=== PATIENT | male | born 1955 | race Caucasian/White ===

== ENCOUNTER 2016-11-06 20:41 | Inpatient (IN) | payer BC ==
[2016-11-06 21:23] VITALS: BMI 27.3
--- NOTE | 2016-11-06 22:18 | HP ---
CIWA Score - CIWA Score Nausea/Vomitin Muscle Tremors: 4-Moderate,w/Arms Extend Anxiety: 4-Mod. Anxious/Guarded Agitation: 4-Moderately Restless Paroxysmal Sweats: 4-Forehead w/Sweat Beads Orientation: 0-Oriented Tacttile Disturbances: 0-None Auditory Disturbances: 0-None Visual Disturbances: 0-None Headache: 2-Mild CIWA-Ar Total Score: 21 Admission ROS BHS - HPI Chief Complaint: C/O ALCOHOL ABUSE/DEPENDENCE SEEKING DETOX TXMENT. Allergies/Adverse Reactions: Allergies Allergy/AdvReac Type Severity Reaction Status Date / Time No Known Allergies Allergy Verified 11/06/16 21:29 History of Present Illness: 61 Y.O MALE WITH ALCOHOLISM ADMITTED FOR DETOX TXMENT. WAS SEEN AT [facility] TODAY FOR WITHDRAWAL SX'S SEEN AND DC. REFERRED HERE. DENIES ANY SIGNIFICANT CLEAN TIME. Exam Limitations: No Limitations - Ebola screening Have you traveled outside of the country in the last 21 days: No Have you had contact with anyone from an Ebola affected area: No Have you been sick,other than usual withdrawal symptoms: No Do you have a fever: No - Review of Systems Constitutional: Chills, Night Sweats, Changes in sleep EENT: reports: No Symptoms Reported Respiratory: reports: Cough Cardiac: reports: No Symptoms Reported GI: reports: Abdominal cramping : reports: No Symptoms Reported Musculoskeletal: reports: No Symptoms Reported Integumentary: reports: No Symptoms Reported Neuro: reports: No Symptoms reported Endocrine: reports: No Symptoms Reported Hematology: reports: No Symptoms Reported Psychiatric: reports: Anxious Other Systems: Reviewed and Negative Patient History - Patient Medical History Hx Anemia: No Hx Asthma: No Hx Chronic Obstructive Pulmonary Disease (COPD): No Hx Cancer: No Hx Cardiac Disorders: No Hx Congestive Heart Failure: No Hx Hypertension: No Hx Hypercholesterolemia: No Hx Pacemaker: No HX Cerebrovascular Accident: No Hx Seizures: No Hx Diabetes: No Hx Gastrointestinal Disorders: No Hx Liver Disease: No Hx Genitourinary Disorders: No Hx Sexually Transmitted Disorders: No Hx Renal Disease (ESRD): No Hx Thyroid Disease: No Hx Human Immunodeficiency Virus (HIV): No Hx Hepatitis C: No Hx Depression: No Hx Suicide Attempt: No Hx Bipolar Disorder: No Hx Schizophrenia: No Other Medical History: DENIES - Patient Surgical History Past Surgical History: Yes Hx Neurologic Surgery: No Hx Cataract Extraction: No Hx Cardiac Surgery: No Hx Lung Surgery: No Hx Breast Surgery: No Hx Breast Biopsy: No Hx Abdominal Surgery: No Hx Appendectomy: No Hx Cholecystectomy: No Hx Genitourinary Surgery: No Hx Section: No Hx Orthopedic Surgery: Yes Other Surgical History: FX RT KNEE Anesthesia Reaction: No - PPD History Previous Implant?: Yes Documented Results: Negative w/o proof Implanted On Prior R Admission?: No PPD to be Administered?: Yes - Smoking Cessation Smoking history: Current every day smoker Have you smoked in the past 12 months: Yes Aproximately how many cigarettes per day: 10 Hx Chewing Tobacco Use: No Initiated information on smoking cessation: Yes 'Breaking Loose' booklet given: 11/06/16 - Substance & Tx. History Hx Alcohol Use: Yes Substance Use Type: Cocaine Hx Substance Use Treatment: Yes (DOES NOT RECALL) - Substances Abused Alcohol Route: Oral Frequency: Daily Amount used: LIQUOR- 2 PINTS, BEER- 1 CASE Age of first use: 16 Date of Last Use: 11/06/16 Crack Route: Smoking Frequency: Daily Amount used: 10 BAGS Age of first use: 19 Date of Last Use: 11/06/16 Family Disease History - Family Disease History Family History: Denies Admission Physical Exam BHS - Vital Signs Vital Signs: Vital Signs - 24 hr 11/06/16 21:20 Temperature 97.9 F Pulse Rate 80 Respiratory 20 Rate Blood Pressure 138/81 - Physical General Appearance: Yes: Disheveled, Moderate Distress, Intoxicated, Anxious HEENTM: Yes: EOMI, Normocephalic, Normal Voice, EDUARD, Pharynx Normal, Other ( MISSING TEETH) Respiratory: Yes: Chest Non-Tender, Lungs Clear, Normal Breath Sounds, No Respiratory Distress, No Accessory Muscle Use Neck: Yes: No masses,lesions,Nodules, Supple, Trachea in good position Breast: Yes: Breast Exam Deferred Cardiology: Yes: Regular Rhythm, Regular Rate, S1, S2 Abdominal: Yes: Normal Bowel Sounds, Non Tender, Soft Genitourinary: Yes: Within Normal Limits Back: Yes: Normal Inspection Musculoskeletal: Yes: full range of Motion, Gait Steady Extremities: Yes: Normal Capillary Refill, Normal Range of Motion, Non-Tender, Tremors Neurological: Yes: Fully Oriented, Motor Strength 5/5 Integumentary: Yes: Other (UNKEPT, SOILED WITH DRY FECES, OFFENSIVE ODUR) Lymphatic: Yes: Within Normal Limits - Diagnostic (1) Alcohol dependence with uncomplicated withdrawal Current Visit: Yes Status: Chronic (2) Cocaine dependence, uncomplicated Current Visit: Yes Status: Chronic (3) Nicotine dependence Current Visit: Yes Status: Chronic Qualifiers: Nicotine product type: cigarettes Substance use status: uncomplicated Qualified Code(s): F17.210 - Nicotine dependence, cigarettes, uncomplicated Cleared for Admission [facility] - Detox or Rehab [facility] Level of Care: Medically Managed Detox Regimen/Protocol: Librium [facility] Breath Alcohol Content Breath Alcohol Content: 0.079 Urine Drug Screen - Results Drug Screen Negative: No Urine Drug Screen Results: JEANNE-Cocaine
[2016-11-06] MEDS ORDERED: hydrOXYzine PAMOATE 50 MG CAPSULE (FP) PO PRN (22:31)
[2016-11-06] MEDS ORDERED: P-EPHED 60MG/TRIPROLIDI 2.5MG TABLET PO PRN (22:31)
[2016-11-06] MEDS ORDERED: MENTHOL/PHENOL 1 EACH UD MM PRN (22:31)
[2016-11-06] MEDS ORDERED: LOPERAMIDE HCL 2 MG CAPSULE PO PRN (22:31)
[2016-11-06] MEDS ORDERED: guaiFENesin/D-METHORPHAN HB 10 ML UNIT-DOSE CUPS PO PRN (22:31)
[2016-11-06] MEDS ORDERED: ACETAMINOPHEN 325 MG TABLET (FP) PO PRN (22:31)
[2016-11-06] MEDS ORDERED: IBUPROFEN 400 MG TABLET (FP) PO PRN (22:31)
[2016-11-06] MEDS ORDERED: MAGNESIUM CITRATE 300 ML BOTTLE PO PRN (22:31)
[2016-11-06] MEDS ORDERED: NICOTINE POLACRILEX 2 MG GUM BC PRN (22:31)
[2016-11-06] MEDS ORDERED: MAG HYDROX/AL HYDROX/SIMETH 30 ML UNIT-DOSE CUP PO PRN (22:31)
[2016-11-06] MEDS ORDERED: chlordiazePOXIDE HCL 25 MG CAPSULE PO PRN (22:31)
[2016-11-06] MEDS ORDERED: MAGNESIUM HYDROX 2400MG/30ML ORAL SUSPENSION 30 ML CUP PO PRN (22:31)
[2016-11-06] MEDS: chlordiazePOXIDE HCL 25 MG CAPSULE PO SCH (22:58)
[2016-11-07] MEDS: chlordiazePOXIDE HCL 25 MG CAPSULE PO SCH ×4 (05:55→22:19)
[2016-11-07 09:19] LABS: MCH 32.6 pg (25.7-33.7); MCHC 33.6 g/dl (32.0-35.9); MEAN CELL VOLUME 96.9 fl (80-96); MEAN PLT VOLUME 9.4 fl (7.5-11.1); PLATELET COUNT 187 K/MM3 (134-434); RDW 12.9 % (11.9-15.9); WHITE BLOOD COUNT 3.4 K/mm3 (4.0-10.0)
[2016-11-07 09:21] LABS: ALBUMIN 3.3 g/dl (3.4-5.0); ANION GAP 8 (8-16); CO2 33 mmol/L (21-32); GLUCOSE,RANDOM 114 mg/dL (74-106)
[2016-11-07 09:25] LABS: ALK PHOS 105 U/L (45-117); BILIRUBIN,TOTAL 0.9 mg/dL (0.2-1.0); CREATININE 0.8 mg/dL (0.7-1.3); SGOT/AST 79 U/L (15-37); SGPT/ALT 67 U/L (12-78); TOT PROT 7.5 g/dl (6.4-8.2)
--- NOTE | 2016-11-07 09:34 | CONSULT ---
[facility] Psychiatric Consult - Data Date of interview: 11/07/16 Admission source: [facility] Identifying data: First admission to [facility] for this 61 y/o male seeking detox treatment on for alcohol and cocaine (crack) dependence.Patient is single without children,homeless,unemployed and supporetd on SSI benefits. Substance Abuse History: - Smoking Cessation. Smoking history: Current every day smoker. Have you smoked in the past 12 months: Yes. Aproximately how many cigarettes per day: 10. Hx Chewing Tobacco Use: No. Initiated information on smoking cessation: Yes. 'Breaking Loose' booklet given: 11/06/16. - Substance & Tx. History. Hx Alcohol Use: Yes. Substance Use Type: Cocaine. Hx Substance Use Treatment: Yes (DOES NOT RECALL). - Substances Abused. Alcohol. Route: Oral. Frequency: Daily. Amount used: LIQUOR- 2 PINTS, BEER- 1 CASE. Age of first use: 16. Date of Last Use: 11/06/16. Crack. Route: Smoking. Frequency: Daily. Amount used: 10 BAGS. Age of first use: 19. Date of Last Use: 11/06/16. Discussed in this session.Patient confirms this pattern of substance use. Medical History: Patient reports good general health. Psychiatric History: Patient denies. Physical/Sexual Abuse/Trauma History: No reported history of sexual abuse. Additional Comment: Urine Drug Screen Results: JEANNE-Cocaine.Noted. Mental Status Exam - Mental Status Exam Alert and Oriented to: Time, Place, Person Cognitive Function: Good Patient Appearance: Disheveled Mood: Nervous, Withdrawn Affect: Mood Congruent Patient Behavior: Fatigued, Appropriate, Cooperative Speech Pattern: Clear Voice Loudness: Normal Thought Process: Goal Oriented Thought Disorder: Not Present Hallucinations: Denies Suicidal Ideation: Denies Homicidal Ideation: Denies Insight/Judgement: Poor Sleep: Fair Appetite: Good Muscle strength/Tone: Normal Gait/Station: Normal Psychiatric Findings - Problem List ([place] 1, 2,3) (1) Alcohol dependence with uncomplicated withdrawal Current Visit: Yes Status: Chronic (2) Cocaine dependence, uncomplicated Current Visit: Yes Status: Chronic (3) Nicotine dependence Current Visit: Yes Status: Chronic Qualifiers: Nicotine product type: cigarettes Substance use status: uncomplicated Qualified Code(s): F17.210 - Nicotine dependence, cigarettes, uncomplicated - Initial Treatment Plan Initial Treatment Plan: Psychoeducation :emphasis on the benefits of sobriety and the dangers (medical,social,legal and psychological) of substance abuse.Detoxification in progress.Observation.
[2016-11-07] MEDS: NICOTINE 21 MG/24 HOURS TOPICAL PATCH TD SCH (10:08)
[2016-11-07] MEDS: PRENATAL VITAMINS W/ FOLIC ACID TABLET (FP) PO SCH (10:09)
--- NOTE | 2016-11-07 10:27 | PN ---
S CIWA - CIWA Score Nausea/Vomitin-No Nausea/No Vomiting Muscle Tremors: 3 Anxiety: 4-Mod. Anxious/Guarded Agitation: 4-Moderately Restless Paroxysmal Sweats: 3 Orientation: 0-Oriented Tacttile Disturbances: 0-None Auditory Disturbances: 0-None Visual Disturbances: 0-None Headache: 0-None Present CIWA-Ar Total Score: 14 BHS Progress Note (SOAP) Subjective: sweating,interrupted sleep,anxiety,tremors,restless. Objective: 11/07/16 10:25 Vital Signs - 8 hr 11/07/16 11/07/16 11/07/16 03:38 06:20 10:05 Temperature 97 F L 98.4 F Pulse Rate 74 91 H Respiratory 18 18 18 Rate Blood Pressure 175/88 153/87 Laboratory Tests 11/07/16 11/07/16 07:45 07:45 WBC 3.4 L RBC 4.10 Hgb 13.3 Hct 39.7 MCV 96.9 H MCHC 33.6 RDW 12.9 Plt Count 187 MPV 9.4 Sodium 140 Potassium 3.9 Chloride 99 Carbon Dioxide 33 H Anion Gap 8 BUN 11 Creatinine 0.8 Creat Clearance w eGFR > 60 Random Glucose 114 H Calcium 9.0 Total Bilirubin 0.9 AST 79 H ALT 67 Alkaline Phosphatase 105 Total Protein 7.5 Albumin 3.3 L labs noted Assessment: 11/07/16 10:26 withdrawal sx. Plan: continue detox
--- NOTE | 2016-11-07 10:45 | EKG ---
Test Reason : Blood Pressure : / mmHG Vent. Rate : 068 BPM Atrial Rate : 068 BPM P-R Int : 190 ms QRS Dur : 096 ms QT Int : 464 ms P-R-T Axes : 068 011 034 degrees QTc Int : 493 ms NORMAL SINUS RHYTHM MINIMAL VOLTAGE CRITERIA FOR LVH, MAY BE NORMAL VARIANT PROLONGED QT ABNORMAL ECG NO PREVIOUS ECGS AVAILABLE Confirmed by MAGO MONTES MD ([id number]) on 11/07/2016 10:45:31 AM Referred By: Confirmed By:MAGO MONTES MD
[2016-11-07] MEDS ORDERED: LISINOPRIL 10 MG TABLET (FP) PO ONE (14:37)
[2016-11-07] MEDS: amLODIPine BESYLATE 10 MG TABLET (FP) PO SCH (14:51)
[2016-11-07 20:48] LABS: URINE APPEARANCE CLOUDY; URINE BILIRUBIN NEGATIVE (NEGATIVE); URINE BLOOD NEGATIVE (NEGATIVE); URINE COLOR YELLOW; URINE GLUCOSE (UA) NEGATIVE (NEGATIVE); URINE KETONE NEGATIVE (NEGATIVE); URINE LEUK ESTERASE NEGATIVE (NEGATIVE); URINE NITRITE NEGATIVE (NEGATIVE); URINE PROTEIN NEGATIVE (NEGATIVE); URINE UROBILINOGEN NEGATIVE E.U./dl (0.2-1.0)
[2016-11-07] MEDS: THIAMINE HCL 100 MG TABLET (FP) PO SCH (22:19)
[2016-11-07] MEDS: LISINOPRIL 10 MG TABLET (FP) PO SCH (22:19)
[2016-11-07] MEDS: diphenhydrAMINE HCL 50 MG CAPSULE PO PRN (22:19)
[2016-11-08] MEDS: chlordiazePOXIDE HCL 25 MG CAPSULE PO SCH ×3 (05:28→17:44)
[2016-11-08] MEDS: PRENATAL VITAMINS W/ FOLIC ACID TABLET (FP) PO SCH (10:05)
[2016-11-08] MEDS: amLODIPine BESYLATE 10 MG TABLET (FP) PO SCH (10:06)
[2016-11-08] MEDS: LISINOPRIL 10 MG TABLET (FP) PO SCH ×2 (10:06→22:12)
[2016-11-08] MEDS: NICOTINE 21 MG/24 HOURS TOPICAL PATCH TD SCH (10:07)
--- NOTE | 2016-11-08 11:41 | PN ---
S CIWA - CIWA Score Nausea/Vomitin Muscle Tremors: 4-Moderate,w/Arms Extend Anxiety: 4-Mod. Anxious/Guarded Agitation: 4-Moderately Restless Paroxysmal Sweats: 3 Orientation: 0-Oriented Tacttile Disturbances: 1-Very Mild Itch/Numbness Auditory Disturbances: 0-None Visual Disturbances: 0-None Headache: 0-None Present CIWA-Ar Total Score: 19 BHS Progress Note (SOAP) Subjective: nausea, sweats, interrupted sleep, anxiety, tremors Objective: 11/08/16 11:40 Vital Signs - 24 hr 11/07/16 11/07/16 11/07/16 14:39 16:53 18:00 Temperature 98.6 F 96.9 F L Pulse Rate 65 65 75 Respiratory 18 16 Rate Blood Pressure 213/96 190/97 180/100 11/07/16 11/08/16 11/08/16 23:09 00:30 03:30 Temperature 96.8 F L Pulse Rate 74 Respiratory 18 18 18 Rate Blood Pressure 151/90 11/08/16 06:41 Temperature 96.1 F L Pulse Rate 70 Respiratory 18 Rate Blood Pressure 158/89 Laboratory Tests 11/07/16 11/07/16 11/07/16 07:45 07:45 07:45 WBC 3.4 L RBC 4.10 Hgb 13.3 Hct 39.7 MCV 96.9 H MCHC 33.6 RDW 12.9 Plt Count 187 MPV 9.4 Sodium 140 Potassium 3.9 Chloride 99 Carbon Dioxide 33 H Anion Gap 8 BUN 11 Creatinine 0.8 Creat Clearance w eGFR > 60 Random Glucose 114 H Calcium 9.0 Total Bilirubin 0.9 AST 79 H ALT 67 Alkaline Phosphatase 105 Total Protein 7.5 Albumin 3.3 L Urine Color Urine Appearance Urine pH Ur Specific [place] Urine Protein Urine Glucose (UA) Urine Ketones Urine Blood Urine Nitrite Urine Bilirubin Urine Urobilinogen Ur Leukocyte Esterase RPR Titer Nonreactive 11/07/16 20:00 WBC RBC Hgb Hct MCV MCHC RDW Plt Count MPV Sodium Potassium Chloride Carbon Dioxide Anion Gap BUN Creatinine Creat Clearance w eGFR Random Glucose Calcium Total Bilirubin AST ALT Alkaline Phosphatase Total Protein Albumin Urine Color Yellow Urine Appearance Cloudy Urine pH 8.0 Ur Specific [place] 1.015 Urine Protein Negative Urine Glucose (UA) Negative Urine Ketones Negative Urine Blood Negative Urine Nitrite Negative Urine Bilirubin Negative Urine Urobilinogen Negative Ur Leukocyte Esterase Negative RPR Titer low albumin Assessment: 11/08/16 11:40 withdrawal sx malnutirtion/low alb 2/2 substance use and liver disease Plan: cont deto, fluids, nutirtional cousneling provided regarding healthy eating habits
[2016-11-08] MEDS: diphenhydrAMINE HCL 50 MG CAPSULE PO PRN (22:12)
[2016-11-08] MEDS: chlordiazePOXIDE 5 MG CAPSULE PO SCH (22:12)
[2016-11-08] MEDS: THIAMINE HCL 100 MG TABLET (FP) PO SCH (22:12)
[2016-11-09] MEDS: chlordiazePOXIDE 5 MG CAPSULE PO SCH ×3 (05:25→17:43)
[2016-11-09] MEDS: PRENATAL VITAMINS W/ FOLIC ACID TABLET (FP) PO SCH (10:08)
[2016-11-09] MEDS: amLODIPine BESYLATE 10 MG TABLET (FP) PO SCH (10:08)
[2016-11-09] MEDS: LISINOPRIL 10 MG TABLET (FP) PO SCH ×2 (10:08→22:07)
[2016-11-09] MEDS: NICOTINE 21 MG/24 HOURS TOPICAL PATCH TD SCH (10:08)
--- NOTE | 2016-11-09 15:04 | PN ---
BHS Progress Note (SOAP) Subjective: Anxious, restless, sweating Objective: 11/09/16 15:03 Last Vital Signs Temp Pulse Resp BP Pulse Ox 95.9 F L 87 20 116/73 11/09/16 14:09 11/09/16 14:09 11/09/16 14:09 11/09/16 14:09 Laboratory Tests 11/07/16 11/07/16 11/07/16 07:45 07:45 07:45 WBC 3.4 L RBC 4.10 Hgb 13.3 Hct 39.7 MCV 96.9 H MCHC 33.6 RDW 12.9 Plt Count 187 MPV 9.4 Sodium 140 Potassium 3.9 Chloride 99 Carbon Dioxide 33 H Anion Gap 8 BUN 11 Creatinine 0.8 Creat Clearance w eGFR > 60 Random Glucose 114 H Calcium 9.0 Total Bilirubin 0.9 AST 79 H ALT 67 Alkaline Phosphatase 105 Total Protein 7.5 Albumin 3.3 L Urine Color Urine Appearance Urine pH Ur Specific [place] Urine Protein Urine Glucose (UA) Urine Ketones Urine Blood Urine Nitrite Urine Bilirubin Urine Urobilinogen Ur Leukocyte Esterase RPR Titer Nonreactive 11/07/16 20:00 WBC RBC Hgb Hct MCV MCHC RDW Plt Count MPV Sodium Potassium Chloride Carbon Dioxide Anion Gap BUN Creatinine Creat Clearance w eGFR Random Glucose Calcium Total Bilirubin AST ALT Alkaline Phosphatase Total Protein Albumin Urine Color Yellow Urine Appearance Cloudy Urine pH 8.0 Ur Specific [place] 1.015 Urine Protein Negative Urine Glucose (UA) Negative Urine Ketones Negative Urine Blood Negative Urine Nitrite Negative Urine Bilirubin Negative Urine Urobilinogen Negative Ur Leukocyte Esterase Negative RPR Titer Labs noted Assessment: 11/09/16 15:04 Withdrawal symptoms Plan: Continue detox
[2016-11-09] MEDS: THIAMINE HCL 100 MG TABLET (FP) PO SCH (22:06)
[2016-11-09] MEDS: chlordiazePOXIDE HCL 10 MG CAPSULE PO SCH (22:07)
[2016-11-09] MEDS: diphenhydrAMINE HCL 50 MG CAPSULE PO PRN (22:08)
[2016-11-10] MEDS: chlordiazePOXIDE HCL 10 MG CAPSULE PO SCH ×2 (05:35→10:02)
[2016-11-10 06:30] VITALS: BP 127/80; PULSE 75; TEMP 97
--- NOTE | 2016-11-10 10:00 | DS ---
[facility] Detox Discharge Summary Admission Date: 11/06/16 Discharge Date: 11/10/16 - History Present History: Alcohol Dependence, Cocaine Dependence Additional Comments: NONE Pertinent Past History: DENIES PMHx/PPSYCHx - Physical Exam Results Vital Signs: Vital Signs Temperature 97.0 F L 11/10/16 06:29 Pulse Rate 75 11/10/16 06:29 Respiratory Rate 18 11/10/16 06:29 Blood Pressure 127/80 11/10/16 06:29 O2 Sat by Pulse Oximetry (%) Pertinent Admission Physical Exam Findings: WITHDRAWAL SX - Treatment Hospital Course: Detox Protocol Followed, Detoxed Safely, Responded well, Discharged Condition Good - Medication Discharge Medications: Ambulatory Orders NK [No Known Home Medication] 11/06/16 - Diagnosis (1) Alcohol dependence with uncomplicated withdrawal Current Visit: Yes Status: Acute (2) Cocaine dependence, uncomplicated Current Visit: Yes Status: Acute (3) Nicotine dependence Current Visit: Yes Status: Chronic Qualifiers: Nicotine product type: cigarettes Substance use status: uncomplicated Qualified Code(s): F17.210 - Nicotine dependence, cigarettes, uncomplicated - AMA Did Patient Leave Against Medical Advice: No
[2016-11-10] MEDS: LISINOPRIL 10 MG TABLET (FP) PO SCH (10:02)
[2016-11-10] MEDS: PRENATAL VITAMINS W/ FOLIC ACID TABLET (FP) PO SCH (10:02)
[2016-11-10] MEDS: amLODIPine BESYLATE 10 MG TABLET (FP) PO SCH (10:02)
[2016-11-10] MEDS: NICOTINE 21 MG/24 HOURS TOPICAL PATCH TD SCH (10:02)
== END 2016-11-10 10:25 | disposition home or self-care (01) | DRG 774 ==
LOC: YASAS 20:41 → Y3N 21:31
PROVIDERS: ADMIT Internal Medicine; ATTEND Internal Medicine
PROC: HZ2ZZZZ Detoxification Services for Substance Abuse Treatment (ICD-10-PCS; principal; 2016-11-10)
DX: F10.230 Alcohol dependence with withdrawal, uncomplicated (principal); F14.20 Cocaine dependence, uncomplicated; F17.210 Nicotine dependence, cigarettes, uncomplicated
CPT/HCPCS: 36415; 80053; 81003; 85027; 86593; 93005; 93010